=== PATIENT | female | born 1990 | race Caucasian/White ===

== ENCOUNTER 2017-05-01 23:53 | Emergency (ER) | payer SELFPAY ==
[~2017-05-01] VITALS: Ht 160 cm; Wt 65.8 kg
[2017-05-02] MEDS ORDERED: WELLBUTRIN XL150 MG ORAL (00:14)
[2017-05-02 00:24] VITALS: BP 130/65
--- NOTE | 2017-05-02 00:37 | Emergency Room Report ---
History of Present Illness General Chief Complaint: General Complaint Source: Patient Present Illness HPI Is a 27-year-old female with no past medical history. She is from [place]. She 's been here in a sober living for rehabilitation from alcohol abuse. She left for 5 hour and was drinking vodka. She came back intoxicated and was brought here for medical clearance. Patient denies any drug use. No nausea no vomiting. No suicidal thoughts or homicidal thought. No hallucination or delusion. Allergies: Coded Allergies: No Known Allergies (Unverified , 05/02/17) Patient History Past Medical History: see triage record, old chart reviewed Past Surgical History: none Pertinent Family History: none Social History: Reports: alcohol use Now: No Immunizations: other Reviewed Nursing Documentation: PMH: Agreed, PSxH: Agreed Nursing Documentation-PMH Past Medical History: No History, Except For History Of Psychiatric Problem: Yes Review of Systems Eye: Denies: eye pain, blurred vision ENT: Denies: ear pain, nose congestion, throat swelling Respiratory: Denies: cough, shortness of breath Cardiovascular: Denies: chest pain, palpitations Gastrointestinal: Denies: abdominal pain, diarrhea, nausea, vomiting Musculoskeletal: Denies: back pain, joint pain Skin: Denies: rash Neurological: Denies: headache, numbness Endocrine: Denies: increased thirst, increased urine Hematologic/Lymphatic: Denies: easy bruising All Other Systems: negative except mentioned in HPI Physical Exam Vital Signs Date Time Temp Pulse Resp B/P (MAP) Pulse Ox O2 Delivery O2 Flow Rate FiO2 05/02/17 00:10 98.1 120 20 130/65 94 Room Air vitals with tachycardia Sp02 EP Interpretation: reviewed, normal General Appearance: well appearing, no apparent distress, alert, other - Intoxicated Head: normocephalic, atraumatic Eyes: bilateral eye PERRL, bilateral eye EOMI ENT: hearing grossly normal, normal pharynx Neck: full range of motion, supple, no meningismus Respiratory: chest non-tender, lungs clear, normal breath sounds Cardiovascular #1: regular rate, rhythm, no murmur Gastrointestinal: normal bowel sounds, non tender, no mass, no organomegaly, no bruit, non-distended Musculoskeletal: back normal, gait/station normal, normal range of motion Psychiatric: mood/affect normal Skin: warm/dry Medical Decision Making Diagnostic Impression: Primary Impression: Trichomonal cervicitis ER Course Patient with vaginal discharge and has Trichomonas. This probably accounts for the abnormal a urinalysis. I gave her Flagyl here. I went ahead and gave her Rocephin and azithromycin to treat for gonorrhea and Chlamydia. Recommend outpatient testing for HIV, hepatitis, syphilis and other STDs. Also recommend having her partner treated. Patient expressed understanding. Last Vital Signs Date Time Temp Pulse Resp B/P (MAP) Pulse Ox O2 Delivery O2 Flow Rate FiO2 05/02/17 00:24 98.1 120 20 130/65 94 Room Air Status: improved Disposition: HOME, SELF-CARE Condition: Stable Referrals: NOT CHOSEN IPA/MD,REFERRING (PCP) Additional Instructions: Followup with your Dr. in 7 days. Recommend anonymous testing for HIV, hepatitis, syphilis and other STDs. Have your partner is treated. Return if symptom worsen. FABIANA KUMAR M.D. May 02, 2017 00:37
[2017-05-02] MEDS ORDERED: NALTREXONE HCL50 MG PO (01:25)
[2017-05-02] MEDS ORDERED: IBUPROFEN600 MG ORAL (01:26)
[2017-05-02] MEDS ORDERED: HYDROXYZINE PA100 MG ORAL (01:27)
[2017-05-02] MEDS ORDERED: ZOFRAN8 MG ORAL (01:29)
[2017-05-02] MEDS ORDERED: CATAPRES0.1 MG ORAL (01:30)
--- NOTE | 2017-05-02 01:30 | Emergency Room Report ---
History of Present Illness General Chief Complaint: General Complaint Source: Patient Present Illness HPI Is a 27-year-old female with no past medical history. She is from [place]. She 's been here in a sober living for rehabilitation from alcohol abuse. She left for 5 hour and was drinking vodka. She came back intoxicated and was brought here for medical clearance. Patient denies any drug use. No nausea no vomiting. No suicidal thoughts or homicidal thought. No hallucination or delusion. Allergies: Coded Allergies: No Known Allergies (Unverified , 05/02/17) Patient History Past Medical History: none Past Surgical History: none Pertinent Family History: none Social History: Reports: alcohol use Now: No Immunizations: other Reviewed Nursing Documentation: PMH: Agreed, PSxH: Agreed Nursing Documentation-PMH Past Medical History: No History, Except For History Of Psychiatric Problem: Yes Review of Systems Eye: Denies: eye pain, blurred vision ENT: Denies: ear pain, nose congestion, throat swelling Respiratory: Denies: cough, shortness of breath Cardiovascular: Denies: chest pain, palpitations Gastrointestinal: Denies: abdominal pain, diarrhea, nausea, vomiting Musculoskeletal: Denies: back pain, joint pain Skin: Denies: rash Neurological: Denies: headache, numbness Endocrine: Denies: increased thirst, increased urine Hematologic/Lymphatic: Denies: easy bruising All Other Systems: negative except mentioned in HPI Physical Exam Vital Signs Date Time Temp Pulse Resp B/P (MAP) Pulse Ox O2 Delivery O2 Flow Rate FiO2 05/02/17 00:10 98.1 120 20 130/65 94 Room Air vitals with tachycardia Sp02 EP Interpretation: reviewed, normal General Appearance: well appearing, no apparent distress, alert, other - Intoxicated Head: normocephalic, atraumatic Eyes: bilateral eye PERRL, bilateral eye EOMI ENT: hearing grossly normal, normal pharynx Neck: full range of motion, supple, no meningismus Respiratory: chest non-tender, lungs clear, normal breath sounds Cardiovascular #1: regular rate, rhythm, no murmur Gastrointestinal: normal bowel sounds, non tender, no mass, no organomegaly, no bruit, non-distended Musculoskeletal: back normal, gait/station normal, normal range of motion Psychiatric: mood/affect normal Skin: warm/dry Medical Decision Making Diagnostic Impression: Primary Impression: Alcohol intoxication Qualified Codes: F10.920 - Alcohol use, unspecified with intoxication, uncomplicated ER Course Patient present with alcohol intoxication. No other drug use. She is medically clear from my standpoint to go back to sober living. I called [facility] at [phone]. Patient is stable. He sleeping comfortably. I left a message for the patient up in the morning. Last Vital Signs Date Time Temp Pulse Resp B/P (MAP) Pulse Ox O2 Delivery O2 Flow Rate FiO2 05/02/17 00:24 98.1 120 20 130/65 94 Room Air Status: improved Disposition: HOME, SELF-CARE Condition: Stable Referrals: NOT CHOSEN IPA/MD,REFERRING (PCP) Additional Instructions: abstain from drugs and alcohol. Followup your Dr. in 7 days as needed. Return if symptom worsen. FABIANA KUMAR M.D. May 02, 2017 01:30
[2017-05-02] MEDS ORDERED: GABAPENTIN300 MG ORAL (01:31)
[2017-05-02] MEDS ORDERED: VITAMIN D1000 UNI1 ORAL (01:31)
[2017-05-02] MEDS ORDERED: QUETIAPINE FUMA50 MG ORAL (01:34)
[2017-05-02 04:33] VITALS: BP 114/72
[2017-05-02 07:00] VITALS: BP 120/68
[2017-05-02 08:50] VITALS: BP 119/65
== END 2017-05-02 09:35 | disposition home or self-care (01) ==
LOC: EMR 05-02 00:27
DX: F10.129 Alcohol abuse with intoxication, unspecified (principal)
CPT/HCPCS: 36415; 80300; 99284; G0480; 80329